=== PATIENT | male | born 1980 | race Two or more races ===

== ENCOUNTER 2019-07-25 08:53 | Emergency (ER) | payer OTHER ==
[~2019-07-25] VITALS: Ht 167.6 cm; Wt 99.8 kg
[~2019-07-25 08:53] MED LIST: MOTRIN800 MG PO; SEPTRA DS TABLE1 TAB PO
[2019-07-25] MEDS ORDERED: LOSARTAN POTASS50 MG (08:58)
== END 2019-07-25 11:00 | disposition home or self-care (01) ==
LOC: ER 08:53
DX: N20.1 Calculus of ureter (principal)

== ENCOUNTER 2019-09-03 20:32 | Emergency (ER) | payer OTHER ==
[~2019-09-03] VITALS: Ht 170.2 cm; Wt 118.4 kg
[~2019-09-03 20:32] MED LIST changes: +LOSARTAN POTASS50 MG
[2019-09-03] MEDS ORDERED: MATULANE50 MG (20:51)
[2019-09-03] MEDS ORDERED: CARVEDILOL25 M1 (20:51)
== END 2019-09-03 22:34 | disposition home or self-care (01) ==
LOC: ER 20:32
DX: R33.0 Drug induced retention of urine (principal); N20.2 Calculus of kidney with calculus of ureter; T40.4X5A Adverse effect of other synthetic narcotics, initial encounter; Y92.89 Other specified places as the place of occurrence of the external cause

== ENCOUNTER 2019-09-15 16:32 | Emergency (ER) | payer OTHER ==
[~2019-09-15] VITALS: Ht 170.2 cm; Wt 116.1 kg
[~2019-09-15 16:32] MED LIST changes: +CARVEDILOL25 M1; +MATULANE50 MG
== END 2019-09-15 19:43 | disposition home or self-care (01) ==
LOC: ER 16:32
DX: N20.1 Calculus of ureter (principal)

== ENCOUNTER 2020-04-10 16:31 | Emergency (ER) | payer OTHER ==
[~2020-04-10] VITALS: Ht 170.2 cm; Wt 99.3 kg
[2020-04-10] MEDS ORDERED: VISTARIL25 MG PO (21:05)
== END 2020-04-10 21:14 | disposition home or self-care (01) ==
LOC: ER 16:31
DX: R00.2 Palpitations (principal); F41.0 Panic disorder [episodic paroxysmal anxiety]; Z20.822 Contact with and (suspected) exposure to COVID-19

== ENCOUNTER 2021-02-20 09:05 | Emergency (ER) | payer OTHER ==
[~2021-02-20] VITALS: Ht 170.2 cm; Wt 85.3 kg
[~2021-02-20 09:05] MED LIST changes: +VISTARIL25 MG PO
[2021-02-20] MEDS ORDERED: NIFEDIPINE20 MG PO (09:25)
== END 2021-02-20 10:49 | disposition home or self-care (01) ==
LOC: ER 09:05
DX: I16.0 Hypertensive urgency (principal); I10 Essential (primary) hypertension

== ENCOUNTER 2022-09-03 16:12 | Emergency (ER) | payer OTHER ==
[~2022-09-03] VITALS: Ht 165.1 cm; Wt 108.9 kg
[~2022-09-03 16:12] MED LIST changes: +NIFEDIPINE20 MG PO
== END 2022-09-03 17:13 | disposition home or self-care (01) ==
LOC: ER 16:12
DX: I10 Essential (primary) hypertension (principal)